=== PATIENT | female | born 1985 | race African-American/Black ===

== ENCOUNTER 2019-08-15 14:23 | Emergency (ER) | payer SELFPAY ==
--- NOTE | 2019-08-15 16:38 | RAD ---
EXAM: 3 views of the right foot HISTORY: Foot pain after twisting it this morning COMPARISON: None FINDINGS: 3 views of the right foot shows no evidence of acute fracture or dislocation. No soft tissu e swelling is seen. No degenerative changes are present. IMPRESSION: No evidence of acute osseous abnormality.
[2019-08-15] MEDS ORDERED: Ketorolac Tromethamine 30 MG/ML VIAL ONE (17:11)
== END 2019-08-15 17:33 | disposition home or self-care (01) ==
LOC: ERS 14:23
DX: S92.351A Displaced fracture of fifth metatarsal bone, right foot, initial encounter for closed fracture (principal); F17.200 Nicotine dependence, unspecified, uncomplicated; X50.1XXA Overexertion from prolonged static or awkward postures, initial encounter
CPT/HCPCS: 96372; J1885

== ENCOUNTER 2020-03-28 21:28 | Emergency (ER) | payer OTHER, SELFPAY ==
--- NOTE | 2020-03-28 22:10 | RAD ---
Left shoulder 2 views HISTORY: Fall. Injury. FINDINGS: Left humeral head is displaced inferiorly and anteriorly in relation to the glenoid. Possib le cortical defect at the superior margin of the articular surface of the humeral head. Acromioclavicular alignment is maintained. IMPRESSION : Left shoulder dislocation. Possible Hill-Sachs deformity.
[2020-03-28] MEDS ORDERED: Ketamine 50 MG/ML (10ML VIAL) ONE (23:12)
--- NOTE | 2020-03-28 23:20 | RAD ---
Left shoulder 2 views HISTORY: Dislocation. FINDINGS: Acromioclavicular and glenohumeral alignment are now maintained. Cortical irregularity invo lving the superior aspect of the humeral head persists and could be related to a Hill-Sachs deformity. No new abnormalities are demonstrated. IMPRESSION : Successful reduction left shoulder dislocation.
== END 2020-03-29 00:20 | disposition home or self-care (01) ==
LOC: ERS 21:28
DX: S42.292A Other displaced fracture of upper end of left humerus, initial encounter for closed fracture (principal); S43.005A Unspecified dislocation of left shoulder joint, initial encounter; F17.290 Nicotine dependence, other tobacco product, uncomplicated; W01.0XXA Fall on same level from slipping, tripping and stumbling without subsequent striking against object, initial encounter
CPT/HCPCS: 23650; 96361; 96374; 96375; 99152